=== PATIENT | female | born 1985 | race Caucasian/White ===

== ENCOUNTER 2017-01-24 14:51 | Outpatient (CLI) | payer MEDICAID | END 2017-01-24 14:52 | disposition home or self-care (01) | DX: E28.319 Asymptomatic premature menopause (principal) ==

== ENCOUNTER 2017-09-11 11:39 | Outpatient (CLI) | payer MEDICAID ==
[2017-09-11 12:23] LABS: BASOPHILS % (AUTO) 0.5 %; EOSINOPHILS # (AUTO) 0.3 10^3/uL (0.0-0.7); HCT - HEMATOCRIT 36.3 % (37.0-47.0); HGB - HEMOGLOBIN 12.3 g/dL (12.0-16.0); LYMPHOCYTES # (AUTO) 0.9 10^3/uL (1.5-3.5); LYMPHOCYTES % (AUTO) 10.7 %; MEAN CORPUSCULAR HEMOGLOBIN 29.1 pg (27.0-31.0); MEAN CORPUSCULAR VOLUME 85.5 fL (81.0-99.0); MEAN PLATELET VOLUME 7.5 fL (7.9-10.8); MONOCYTES # (AUTO) 0.7 10^3/uL (0.0-1.0); MONOCYTES % (AUTO) 7.7 %; NEUTROPHILS # (AUTO) 6.7 10^3/uL (1.5-6.6); NEUTROPHILS % (AUTO) 78.1 %; RED BLOOD COUNT 4.24 10^6/uL (4.20-5.40); UNCORRECTED WHITE BLOOD COUNT 8.6 x10^3/uL; WHITE BLOOD COUNT 8.6 x10^3/uL (4.8-10.8)
[2017-09-11 12:32] LABS: BILIRUBIN,URINE NEGATIVE (NEGATIVE)
[2017-09-16 14:56] LABS: TEST RESULT REPORT
== END 2017-09-11 11:40 | disposition home or self-care (01) ==
LOC: LAB 11:39
PROVIDERS: ATTEND Registered Nurse
DX: Z34.81 Encounter for supervision of other normal pregnancy, first trimester (principal); Z36.9 Encounter for antenatal screening, unspecified
CPT/HCPCS: 36415; 80306; 81001; 81599; 85025; 86762; 86780; 86803; 86850; 86900; 86901; 87340; 87389

== ENCOUNTER 2017-11-06 11:37 | Outpatient (CLI) | payer MEDICAID | END 2017-11-06 11:38 | disposition home or self-care (01) | LOC: LAB.R 11:37 | PROVIDERS: ATTEND Nurse Practitioner Obstetrics & Gynecology | DX: R31.9 Hematuria, unspecified (principal); A56.02 Chlamydial vulvovaginitis | CPT/HCPCS: 87086; 87491; 87591 ==

== ENCOUNTER 2017-11-26 08:00 | Outpatient (CLI) | payer MEDICAID | END 2017-11-26 08:01 | LOC: LAB.R 08:00 | PROVIDERS: ATTEND Registered Nurse | DX: N72 Inflammatory disease of cervix uteri (principal) | CPT/HCPCS: 87491; 87591 ==

== ENCOUNTER 2017-11-26 10:55 | Outpatient (CLI) | payer MEDICAID | END 2017-11-26 10:56 | disposition home or self-care (01) | LOC: LAB 10:55 | PROVIDERS: ATTEND Nurse Practitioner Obstetrics & Gynecology | DX: R82.8 Abnormal findings on cytological and histological examination of urine (principal); N72 Inflammatory disease of cervix uteri | CPT/HCPCS: 87086; 87491; 87591 ==

== ENCOUNTER 2017-11-30 07:50 | Outpatient (CLI) | payer MEDICAID ==
--- NOTE | 2017-12-01 10:28 | Ultrasound Report ---
OB ULTRASOUND: 11/30/2017 CLINICAL INDICATION: anatomy. TECHNIQUE: Real-time scanning was performed with charter representative static images obtained. LAST MENSTRUAL PERIOD: 07/12/2017 Clinical Age: 20 weeks 1 day US Age: 18 weeks 4 days EFW Hadlock: 259 grams EFW% Hadlock: 4% Heart Rate: 157 bpm EDC: 04/18/2018 US EDC: 04/29/2018 BPD Hadlock: 18 weeks 0 days; Mean mm 40 HC Hadlock: 18 weeks 5 days; Mean mm 158 AC Hadlock: 18 weeks 6 days; Mean mm 134 FL Hadlock: 18 weeks 6 days; Mean mm 29 Presentation: variable Placental Location: post/fundal Cervical Length: 4.2 cm Amniotic Fluid: 8.6 cm FINDINGS There is a single viable intrauterine gestation, in variable position. heart rate is 157 BPM. The placenta is posterior to fundal, without evidence of previa. Amniotic fluid volume is subjectively normal with a deepest pocket of 3.2 cm. By size, the fetus measures 18 weeks 4 days (20 weeks 1 day by LMP) . Anatomy: The following anatomic structures were visualized and appear normal: The intracranial contents, including the ventricles and posterior fossa ; the lips and orbits; the spine; the diaphragm; the abdominal contents, including the stomach, the bilateral kidneys, and urinary bladder, as well as a normal 3 vessel cord insertion. The heart appears abnormal without a normal 4-chamber visualized, abnormal right ventricular outflow tract, and nonvisualization of the left ventricular outflow tract. echocardiography is recommended for further evaluation. Note is made of possible bilateral club feet. No free fluid or adnexal lesion is appreciated. IMPRESSION 1. ABNORMAL APPEARANCE OF THE HEART. ECHOCARDIOGRAPHY IS RECOMMENDED FOR FURTHER EVALUATION. 2. POSSIBLE BILATERAL CLUB FEET. Results called to Ava Henderson CNM, on 11/30/2017 at 10:00. TD: 11/30/2017 14:21 GRACY
== END 2017-11-30 07:51 | disposition home or self-care (01) ==
LOC: DI 07:50
PROVIDERS: ATTEND Nurse Practitioner Obstetrics & Gynecology
DX: Z36.9 Encounter for antenatal screening, unspecified (principal); O28.3 Abnormal ultrasonic finding on antenatal screening of mother; Z3A.18 18 weeks gestation of pregnancy
CPT/HCPCS: 76811

== ENCOUNTER 2017-12-08 07:56 | Outpatient (CLI) | payer SELFPAY | END 2017-12-08 07:57 | disposition home or self-care (01) | LOC: LAB 07:56 | PROVIDERS: ATTEND Registered Nurse | DX: O28.8 Other abnormal findings on antenatal screening of mother (principal) | CPT/HCPCS: 36415 ==

== ENCOUNTER 2023-04-19 15:46 | Emergency (ER) | payer MEDICAID ==
[2023-04-19 16:03] VITALS: BP 128/80
--- NOTE | 2023-04-19 16:47 | ED Physician Documentation ---
PD HPI LOWER EXT INJURY - Stated complaint Stated Complaint: FOOT INJURY - Chief complaint Chief Complaint: Trauma Ext - History obtained from History obtained from: Patient - History of Present Illness PD HPI LOW EXT INJURY LOCATION: Left, Foot Type of injury: Crush Where injury occurred: Home Pain level max: 3 Pain level now: 2 Improved by: Rest Worsened by: Moving, Palpating Associated symptoms: Swelling. No: Weakness, Numbness, Tingling - Additional information Additional information: Patient states that she accidentally caught her second and third toes inside a folding chair. She complains of bruising and swelling to the toes. Worse with movement and palpation, better with rest. No numbness or tingling. No other injuries. She is not on blood thinners. Review of Systems : denies: Now EGA PD PAST MEDICAL HISTORY - Past Medical History Past Medical History: No - Past Surgical History Past Surgical History: No - Present Medications Home Medications: Ambulatory Orders Medication Instructions Recorded Confirmed No Known Home Medications 04/19/23 04/19/23 - Allergies Allergies/Adverse Reactions: Allergies Allergy/AdvReac Type Severity Reaction Status Date / Time No Known Drug Allergies Allergy Verified 04/19/23 16:02 - Living Situation Living Situation: reports: With family Living Arrangement: reports: At home - Social History Smoking Status: Never smoker PD ED PE NORMAL - Vitals Vital signs reviewed: Yes - General General: Alert and oriented X 3, No acute distress - HEENT HEENT: Moist mucous membranes - Derm Derm: Warm and dry - Extremities Extremities: Other (Mild tenderness to palpation over the dorsum of the left second and third toes. Mild swelling and ecchymosis. Neurovascularly intact. Otherwise normal examination of the foot and ankle. No other tenderness, swelling or ecchymosis.) - Neuro Neuro: Alert and oriented X 3 Results - Vitals Vitals: Vital Signs - 24 hr 04/19/23 15:59 Temperature 36.7 C Heart Rate 80 Respiratory 16 Rate Blood Pressure 128/80 O2 Saturation 99 Oxygen O2 Source Room air - Rads (name of study) Left foot x-ray Relevant Findings:: Final report received, See rad report PD Medical Decision Making - ED course Complexity details: reviewed results, re-evaluated patient, considered di fferential, d/w patient ED course: No acute findings on x-ray of the left foot. No evidence of toe fractures. Patient declines any further care at this time. She will bear weight as tolerated. Motrin and Tylenol as needed for pain. Patient counseled regarding signs and symptoms for which I believe and urgent re-evaluation would be necessary. Patient with good understanding of and agreement to plan and is comfortable going home at this time This document was made in part using voice recognition software. While efforts are made to proofread this document, sound alike and grammatical errors may occur. Departure - Departure Disposition: 01 Home, Self Care Clinical Impression: Contusion of toe Qualifiers: Encounter type: initial encounter Toe: unspecified toe Damage to nail status: without damage Laterality: unspecified laterality Qualified Code(s): S90.129A - Contusion of unspecified lesser toe(s) without damage to nail, initial encounter Condition: Good Instructions: ED Contusion Lower Ext Comments: Your x-ray does not show any acute abnormalities. Please follow-up with your doctor as needed for further care. You can use Motrin or Tylenol as needed for pain. This should improve over the next few days. Discharge Date/Time: 04/19/23 16:56
--- NOTE | 2023-04-19 18:03 | XRAY Report ---
PROCEDURE: Foot 3 View LT INDICATIONS: crush injury TECHNIQUE: 3 views of the foot were acquired. COMPARISON: None. FINDINGS: Bones: No fractures or dislocations. No suspicious bony lesions. Soft tissues: No suspicious soft tissue calcifications or masses. IMPRESSION: Unremarkable left foot radiographs Reviewed by: Alessio Fiore MD on 04/19/2023 5:02 PM AKDT Approved by: Alessio Fiore MD on 04/19/2023 5:02 PM AKDT Station ID: [id number]
== END 2023-04-19 16:56 | disposition home or self-care (01) ==
LOC: ED 15:46
DX: S90.122A Contusion of left lesser toe(s) without damage to nail, initial encounter (principal); W23.0XXA Caught, crushed, jammed, or pinched between moving objects, initial encounter
CPT/HCPCS: 99283